=== PATIENT | female | born 1955 | race Caucasian/White ===

== ENCOUNTER 2023-08-27 07:43 | Emergency (ER) | payer OTHER, MEDICARE ==
[2023-08-27 08:23] LABS: BASOPHILS ABSOLUTE AUTO 0.04 10^3/uL (0.00-0.50); BASOPHILS PERCENT AUTO 0.7 % (0-1); EOSINOPHILS ABSOLUTE AUTO 0.53 10^3/uL (0.00-1.50); EOSINOPHILS PERCENT AUTO 9.3 % (0-6); HEMATOCRIT 33.4 % (37.0-47.0); HEMOGLOBIN 10.6 g/dL (12.0-16.0); LYMPHOCYTES ABSOLUTE AUTO 1.35 10^3/uL (0.60-5.00); LYMPHOCYTES PERCENT AUTO 23.8 % (24-44); MEAN CORPUSCULAR HEMOGLOBIN 27.2 pg (27.0-32.0); MEAN CORPUSCULAR HGB CONC 31.7 g/dL (32.0-36.0); MEAN CORPUSCULAR VOLUME 85.6 fL (83.0-97.0); MONOCYTES ABSOLUTE AUTO 0.33 10^3/uL (0.00-1.50); MONOCYTES PERCENT AUTO 5.8 % (0-10); NEUTROPHILS ABSOLUTE AUTO 3.42 x10^3/uL (1.80-8.00); NEUTROPHILS PERCENT AUTO 60.4 % (41-71); PLATELET COUNT,PLT 498 10^3/uL (150-400); WHITE BLOOD CELL COUNT,WBC 5.7 10^3/uL (4.0-11.0)
[2023-08-27 08:36] LABS: ALBUMIN 3.3 g/dL (3.4-5.0); BILIRUBIN TOTAL 0.4 mg/dL (0.0-1.0); CALCIUM 9.5 mg/dL (8.4-10.1); CREATININE 1.1 mg/dL (0.6-1.0); EST CRCL DRUG DOSING (CG) 34.67 mL/min; MAGNESIUM 2.1 mg/dL (1.8-2.4); POTASSIUM,K 4.5 mEq/L (3.5-5.0)
[2023-08-27 08:41] LABS: D-DIMER QUANTITATIVE 1.23 (0.00-0.50)
[2023-08-27 09:09] LABS: PTT,PARTIAL THROMBOPLSTIN TIME 24.4 SEC (20.0-30.0)
[2023-08-27] MEDS: Iopamidol 755 Mg/ML 100 ML Bottle IVPUSH ONE (09:43)
[2023-08-27 09:46] LABS: INR 1.01 (0.92-1.18); PROTHROMBIN TIME 10.6 SEC (9.3-11.3)
[2023-08-27] MEDS: Take Home: hydrOXYzine HCl 25 MG Tab, 4 Tab Pack PO ONE (13:19)
== END 2023-08-27 13:31 | disposition home or self-care (01) ==
LOC: CC.ED 07:43
DX: K44.9 Diaphragmatic hernia without obstruction or gangrene (principal); K59.01 Slow transit constipation; F41.1 Generalized anxiety disorder; Z88.0 Allergy status to penicillin
CPT/HCPCS: 36415; 71275; 80053; 83690; 83735; 84484; 85025; 85379; 85610; 85730; 93005; 93010; 99284; 99285; A9270; Q9967

== ENCOUNTER 2023-09-08 11:50 | Day surgery (SDC) | payer MEDICARE, OTHER ==
[2023-09-08] MEDS: Lactated Ringers 1,000 ML IV SCH (12:40)
[2023-09-08] MEDS ORDERED: Lidocaine 2% 20 ML MDV ONE (12:42)
[2023-09-08] MEDS ORDERED: fentaNYL 50 MCG/ML SDV ONE (12:42)
[2023-09-08] MEDS ORDERED: Propofol 200 MG/20 ML SDV ONE (12:42)
== END 2023-09-08 14:00 | disposition home or self-care (01) ==
LOC: CC.SDS 11:50
PROVIDERS: ATTEND Family Medicine
DX: K29.50 Unspecified chronic gastritis without bleeding (principal); K44.9 Diaphragmatic hernia without obstruction or gangrene; I10 Essential (primary) hypertension; E78.5 Hyperlipidemia, unspecified; Z79.899 Other long term (current) drug therapy; Z88.0 Allergy status to penicillin
CPT/HCPCS: 00731; 43239; 87081; 88305; 88342; J2704; J3010; J7120; J3490